=== PATIENT | male | born 1985 | race Asian ===

== ENCOUNTER 2017-07-20 07:53 | Emergency (ER) | payer OTHER ==
[2017-07-20 08:04] VITALS: BP 147/83
--- NOTE | 2017-07-20 08:24 | ED Physician Documentation ---
History of Present Illness - Stated complaint Stated Complaint: DIARRHEA - Chief complaint Chief Complaint: Abd Pain - Additonal information Additional information: hx from pt 31 healthy AD [place] male developed diarrhea after eating frozen shrimp no travel,. no sick contacts, no recent ab no fever no NV no blood in BM mild epigastric pain sx were severe over weekend but better now needs a note for work Review of Systems Constitutional: denies: Fever Cardiac: denies: Chest pain / pressure Respiratory: denies: Dyspnea GI: reports: Diarrhea. denies: Nausea, Vomiting, Bloody / black stool Immunocompromised: denies: Immunocompromised PD PAST MEDICAL HISTORY - Past Medical History Past Medical History: No - Present Medications Home Medications: Ambulatory Orders Medication Instructions Recorded Confirmed Loperamide [Imodium] 2 mg PO ONCE PRN #10 capsule 07/20/17 - Allergies Allergies/Adverse Reactions: Allergies Allergy/AdvReac Type Severity Reaction Status Date / Time No Known Drug Allergies Allergy Verified 07/20/17 08:01 - Social History Does the pt smoke?: No Smoking Status: Never smoker Does the pt drink ETOH?: No Does the pt have substance abuse?: No - Immunizations Immunizations are current?: Yes PD ED PE NORMAL - Vitals Vital signs reviewed: Yes - Cardiac Cardiac: RRR - Respiratory Respiratory: No respiratory distress - Abdomen Abdomen: Soft, Non tender - Derm Derm: Normal color - Neuro Neuro: Alert and oriented X 3 Results - Vitals Vitals: Vital Signs - 24 hr 07/20/17 07:56 Temperature 36.5 C Heart Rate 69 Respiratory 16 Rate Blood Pressure 147/83 H O2 Saturation 95 Oxygen O2 Source Room air PD MEDICAL DECISION MAKING - ED course ED course: diarrhea after eating shrimp self resolved Departure - Departure Disposition: 01 Home, Self Care Clinical Impression: Diarrhea Qualifiers: Diarrhea type: unspecified type Qualified Code(s): R19.7 - Diarrhea, unspecified Condition: Good Instructions: ED Diet Vomiting Diarrhea Follow-Up: [facility] Vivas [Provider Group] Prescriptions: Loperamide [Imodium] 2 mg PO ONCE PRN #10 capsule PRN Reason: Diarrhea Comments: Since your symptoms are better now I don't think you need stool tests or antibiotics Rest and drink plenty of fluids today I have prescribed some medication to help any further mild diarrhea But if you have severe diarrhea (more than 10 X per day, blood in the stools, fever, severe abdominal pain) you should come back to the ER for further work up Please get your blood pressure rechecked when you are feeling better - it was high today Forms: Activity restrictions
== END 2017-07-20 08:41 | disposition home or self-care (01) ==
LOC: ED 07:53
DX: R19.7 Diarrhea, unspecified (principal)
CPT/HCPCS: 99283

== ENCOUNTER 2017-11-11 08:49 | Emergency (ER) | payer OTHER ==
--- NOTE | 2017-11-11 09:31 | ED Physician Documentation ---
PD HPI BACK PAIN - Stated complaint Stated Complaint: BACK PX - Chief complaint Chief Complaint: Back Pain - History obtained from History obtained from: Patient - History of Present Illness Timing - onset: How many years ago (1) Timing - duration: Years (1) Timing - details: Gradual onset, Still present, Waxing and waning Pain level max: 7 Pain level now: 6 Location: Lower Quality: Pain, Spasm, Sharp Associated symptoms: No: Fever, Weakness, Numbness, Incontinent of urine, Unable to urinate, Hematuria, Incontinent of stool Improves with: Rest Worsened by: Movement, Lifting, Twisting, Palpation Contributing factors: Lifting Similar symptoms before: Has not had sx before Recently seen: Not recently seen - Additional information Additional information: 31-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 The patient states that his back hurts all the time and that if he works excessively carrying that it will hurt more than usual. He feels that there is a bone out of place. On his foot he also complains of pain in the left heel and this pain is worse in the morning when he gets up and as he is around on his feet the pain resolves and if he rests for any period of time the pain will come back until he works it again. The foot symptoms have been around for about 4-5 months. Review of Systems Constitutional: denies: Fever Eyes: denies: Decreased vision Ears: denies: Ear pain Nose: denies: Congestion Throat: denies: Sore throat Cardiac: denies: Chest pain / pressure, Palpitations Respiratory: denies: Dyspnea, Cough GI: denies: Abdominal Pain, Nausea, Vomiting : denies: Dysuria, Frequency Skin: denies: Rash Musculoskeletal: reports: Back pain, Extremity pain, Pain with weight bearing. denies: Neck pain, Extremity swelling Neurologic: denies: Generalized weakness, Focal weakness, Numbness PD PAST MEDICAL HISTORY - Past Medical History Past Medical History: No - Past Surgical History Past Surgical History: No - Allergies Allergies/Adverse Reactions: Allergies Allergy/AdvReac Type Severity Reaction Status Date / Time No Known Drug Allergies Allergy Verified 07/20/17 08:01 - Social History Does the pt smoke?: No Smoking Status: Never smoker Does the pt drink ETOH?: No Does the pt have substance abuse?: No - Immunizations Immunizations are current?: Yes - POLST Patient has POLST: No PD ED PE NORMAL - Vitals Vital signs reviewed: Yes (hypertensive) - General General: Alert and oriented X 3, No acute distress, Well developed/nourished - HEENT HEENT: Atraumatic, PERRL - Respiratory Respiratory: No respiratory distress - Back Back: No CVA TTP, No spinal TTP, Other (There is some tenderness to the upper L spine midline with a vertebral process skewed to the left. 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, No motor deficit, No sensory deficit, Normal speech Eye Opening: Spontaneous Motor: Obeys Commands Verbal: Oriented GCS Score: 15 - Psych Psych: Normal mood, Normal affect Results - Vitals Vitals: Vital Signs - 24 hr 11/11/17 08:59 Temperature 36.4 C L Heart Rate 67 Respiratory 14 Rate Blood Pressure 134/83 H O2 Saturation 95 Oxygen O2 Source Room air - Rads (name of study) foot Radiology: Prelim report reviewed (Impression no acute osseous abnormality.), EMP read indepedently, See rad report lumbar spine Radiology: Prelim report reviewed (Impression: No evidence of acute osseous abnormality.), EMP read indepedently, See rad report PD MEDICAL DECISION MAKING - ED course Complexity details: reviewed results, re-evaluated patient, considered differential, d/w patient ED course: 31-year-old male with chronic issue with his back and his foot is in the emergency department today as [place] His issues are chronic and may require further treatment. He does have what sounds like plantar fasciitis and does not have calcaneal spurs. He also has some chronic mid back pain. He is given a dose of decadron here in the ED. - Sepsis Event Vital Signs: Vital Signs - 24 hr 11/11/17 08:59 Temperature 36.4 C L Heart Rate 67 Respiratory 14 Rate Blood Pressure 134/83 H O2 Saturation 95 Oxygen O2 Source Room air Departure - Departure Disposition: 01 Home, Self Care Clinical Impression: Plantar fasciitis of left foot Lumbar strain Qualifiers: Encounter type: initial encounter Qualified Code(s): S39.012A - Strain of muscle, fascia and tendon of lower back, initial encounter Condition: Stable Instructions: ED Sprain Strain Lumbar, ED Plantar Fasciitis Follow-Up: [facility] Vivas [Provider Group] Forms: Activity restrictions
[2017-11-11] MEDS ORDERED: DEXAMETHASONE 10 MG/ML VIAL PO STA (09:48)
--- NOTE | 2017-11-11 10:45 | XRAY Report ---
Procedure Date: 11/11/2017 Accession Number: [id number] / [id number] Procedure: XR - Lumbar Spine 2 View CPT Code: FULL RESULT: EXAM: LUMBOSACRAL SPINE RADIOGRAPHY EXAM DATE: 11/11/2017 10:12 AM. CLINICAL HISTORY: Upper lumbar pain. COMPARISONS: None. TECHNIQUE: 2 views. FINDINGS: Alignment: No spondylolisthesis or significant scoliosis. Bones: Five [id number] lumbar vertebral bodies are present. Mild anterior wedging of T12 is age indeterminate but likely chronic. Disks: disk heights are maintained. Facets: No significant degenerative change. Sacroiliac Joints: Unremarkable. Soft Tissues: Unremarkable. IMPRESSION: No evidence of acute osseous abnormality. RADIA
--- NOTE | 2017-11-11 10:47 | XRAY Report ---
Procedure Date: 11/11/2017 Accession Number: [id number] / [id number] Procedure: XR - Foot 3 View LT CPT Code: FULL RESULT: EXAM: LEFT FOOT RADIOGRAPHY EXAM DATE: 11/11/2017 10:13 AM. CLINICAL HISTORY: Heel pain with ambulation for months. COMPARISON: None. TECHNIQUE: 3 views. FINDINGS: Bones: No acute fracture or focal osseous lesion. Minimal degenerative dorsal calcaneal spurring; no plantar spurring. Joints: No subluxation. Soft Tissues: Normal. No soft tissue swelling. IMPRESSION: No acute osseous abnormality. RADIA
[2017-11-11 13:13] VITALS: BP 131/88
== END 2017-11-11 11:50 | disposition home or self-care (01) ==
LOC: ED 08:49
DX: S39.012A Strain of muscle, fascia and tendon of lower back, initial encounter (principal)
CPT/HCPCS: 72100; 99283

== ENCOUNTER 2017-11-12 08:57 | Emergency (ER) | payer OTHER ==
[2017-11-12 09:08] VITALS: BP 125/72
--- NOTE | 2017-11-12 10:07 | CT Report ---
Reason: lower thoracic spine pain/mass Procedure Date: 11/12/2017 Accession Number: [id number] / [id number] Procedure: CT - Thoracic Spine W/O CPT Code: FULL RESULT: EXAM: CT THORACIC SPINE WITHOUT CONTRAST EXAM DATE: 11/12/2017 09:43 AM. CLINICAL HISTORY: Back pain COMPARISONS: None. TECHNIQUE: Thin-section axial images were acquired of the thoracic spine from C7 to L1 without contrast. Post-processing: Coronal and sagittal reformats. Other: None. IV Contrast: None. In accordance with CT protocol optimization, one or more of the following dose reduction techniques were utilized for this exam: automated exposure control, adjustment of mA and/or KV based on patient size, or use of iterative reconstructive technique. FINDINGS: Alignment: No scoliosis or spondylolisthesis. Bones: No fracture or bone lesion. Slight height loss of T12 appears chronic, possibly developmental. Disk Levels/Facets: C7-T1: Unremarkable. T1-T2: Unremarkable. T2-T3: Unremarkable. T3-T4: Unremarkable. T4-T5: Unremarkable. T5-T6: Unremarkable. T6-T7: Unremarkable. T7-T8: Unremarkable. T8-T9: Unremarkable. T9-T10: Unremarkable. T10-T11: Unremarkable. T11-T12: Unremarkable. T12-L1: Unremarkable. Musculature: Unremarkable. No soft tissue mass seen. IMPRESSION: Normal thoracic spine CT. RADIA
--- NOTE | 2017-11-12 10:35 | ED Physician Documentation ---
PD HPI BACK PAIN - Stated complaint Stated Complaint: BACK PX - Chief complaint Chief Complaint: Back Pain - History obtained from History obtained from: Patient - History of Present Illness Timing - onset: How many years ago (2) Timing - duration: Years (2) Timing - details: Gradual onset, Still present Location: Mid Quality: Pain, Spasm, Sharp, Similar to prior episodes Associated symptoms: No: Fever, Weakness, Numbness, Incontinent of urine, Unable to urinate, Hematuria, Incontinent of stool Improves with: Rest Worsened by: Movement, Palpation Contributing factors: No: Lifting, Twisting Similar symptoms before: No diagnosis Recently seen: Emergency Dept - Additional information Additional information: 31-year-old male who has had a spot in the middle of his back that is bothering him for years has had an increase in his symptoms recently and he is gone into see a [place] medic medicine practitioner who as requested he get x-ray examination of the area. He came in yesterday and lumbosacral spine film was done and this does not demonstrate adequately the area where he has his major symptom. He has his major symptom over T12 T11. He is come back in this morning for alternative films. Review of Systems Constitutional: denies: Fever Eyes: denies: Decreased vision Ears: denies: Ear pain Nose: denies: Congestion Throat: denies: Sore throat Respiratory: denies: Cough GI: denies: Vomiting : denies: Dysuria Musculoskeletal: reports: Back pain. denies: Extremity pain Neurologic: denies: Generalized weakness, Focal weakness, Numbness PD PAST MEDICAL HISTORY - Past Surgical History Past Surgical History: No - Present Medications Home Medications: Ambulatory Orders Medication Instructions Recorded Confirmed No Known Home Medications [No 11/12/17 11/12/17 Known Home Medications] - Allergies Allergies/Adverse Reactions: Allergies Allergy/AdvReac Type Severity Reaction Status Date / Time No Known Drug Allergies Allergy Verified 11/12/17 09:07 - Social History Does the pt smoke?: No Smoking Status: Never smoker Does the pt drink ETOH?: No Does the pt have substance abuse?: No - Immunizations Immunizations are current?: Yes - POLST Patient has POLST: No PD ED PE NORMAL - Vitals Vital signs reviewed: Yes (normal ) - General General: Alert and oriented X 3, No acute distress, Well developed/nourished - HEENT HEENT: Atraumatic, PERRL, EOMI - Neck Neck: Supple, no meningeal sign - Respiratory Respiratory: No respiratory distress - Back Back: No CVA TTP, Other (There is a prominent vertebral process in the mid back (if you work hard to feel it)) - Derm Derm: Normal color, Warm and dry, No rash - Extremities Extremities: No deformity, No edema Results - Vitals Vitals: Vital Signs - 24 hr 11/12/17 09:03 Temperature 36.8 C Heart Rate 69 Respiratory 16 Rate Blood Pressure 125/72 O2 Saturation 96 Oxygen O2 Source Room air PD MEDICAL DECISION MAKING - ED course Complexity details: reviewed old records, reviewed results, re-evaluated patient , considered differential, d/w patient ED course: 31-year-old male with chronic back pain has request for imaging procedures and these are provided in the form of a CT of the thoracic spine. A copy of the disc is administered to the patient. - Sepsis Event Vital Signs: Vital Signs - 24 hr 11/12/17 09:03 Temperature 36.8 C Heart Rate 69 Respiratory 16 Rate Blood Pressure 125/72 O2 Saturation 96 Oxygen O2 Source Room air Departure - Departure Disposition: 01 Home, Self Care Clinical Impression: Back pain Qualifiers: Back pain location: thoracic back pain Chronicity: chronic Back pain laterality : midline Qualified Code(s): M54.6 - Pain in thoracic spine; G89.29 - Other chronic pain; G89.29 - Other chronic pain Instructions: ED Neck Back Pain General Follow-Up: [facility] Vivas [Provider Group]
== END 2017-11-12 11:00 | disposition home or self-care (01) ==
LOC: ED 08:57
DX: G89.29 Other chronic pain (principal); M54.6 Pain in thoracic spine
CPT/HCPCS: 72128; 99282; 99283

== ENCOUNTER 2018-09-20 12:14 | Outpatient (CLI) | payer OTHER ==
--- NOTE | 2018-09-21 10:51 | MRI Report ---
Reason: PAIN IN LEFT FOOT Procedure Date: 09/20/2018 Accession Number: [id number] / [id number] Procedure: MRI - Foot LT W/O CPT Code: FULL RESULT: EXAM: LEFT MIDFOOT MRI WITHOUT CONTRAST EXAM DATE: 09/20/2018 01:19 PM. CLINICAL HISTORY: Left heel pain. Recent MRI ankle. COMPARISON: FOOT 3 VIEW LT 11/11/2017 9:56 AM. TECHNIQUE: Multiplanar, multisequence T1-weighted and fluid-sensitive sequences of the midfoot without contrast. Other: None. FINDINGS: Bones: No fractures or subluxations. No marrow edema. No bone lesions. Articular Cartilage: Unremarkable. Ligaments: The visualized intertarsal, intermetatarsal, and tarsometatarsal ligaments are intact. This includes the Lisfranc ligament. The visualized collateral ligaments are intact. Tendons: The flexor and extensor tendons are unremarkable. Musculature: No edema or fatty atrophy. Other: No effusions. The visualized portion of the tarsal tunnel is unremarkable. No intermetatarsal bursitis. The subcutaneous tissues are unremarkable. IMPRESSION: No MRI abnormalities in the midfoot. RADIA
== END 2018-09-20 12:15 | disposition home or self-care (01) ==
LOC: DI 12:14
PROVIDERS: ATTEND Orthopaedic Surgery
DX: M79.672 Pain in left foot (principal)

== ENCOUNTER 2018-11-29 08:16 | Emergency (ER) | payer OTHER ==
[2018-11-29 08:23] VITALS: BP 125/75
--- NOTE | 2018-11-29 09:12 | ED Physician Documentation ---
PD HPI HEENT - Stated complaint Stated Complaint: EAR PX - Chief complaint Chief Complaint: Heent - History obtained from History obtained from: Patient - History of Present Illness Timing - onset: How many days ago (3) Timing - duration: Days (3) Timing - details: Gradual onset, Still present Location: Left ear Improves: Nothing Worsens: Position, Other (touching) Associated symptoms: Other (drainage from the ear). No: Fever, Congestion, Rhinorrhea, Cough Similar symptoms before: Has not had sx before Recently seen: Not recently seen - Additional information Additional information: 33-year-old male with pain to the left ear over the past 3 days has developed some drainage as well. He denies exposure to water in the form of swimming. He denies any cough or congestion or drainage down the back of his throat. Review of Systems Constitutional: denies: Fever Eyes: denies: Decreased vision Ears: reports: Loss of hearing, Ear pain, Drainage/discharge Nose: denies: Rhinorrhea / runny nose, Congestion Throat: denies: Sore throat Respiratory: denies: Cough GI: denies: Vomiting PD PAST MEDICAL HISTORY - Past Surgical History Past Surgical History: No - Present Medications Home Medications: Ambulatory Orders Medication Instructions Recorded Confirmed Azithromycin [Zithromax] 250 mg PO DAILY #6 tablet 11/29/18 Neomycin/Polymyx/Hc Otic Drops 4 drops LEFTEAR QID #1 bottle 11/29/18 [Cortisporin Ear Susp] - Allergies Allergies/Adverse Reactions: Allergies Allergy/AdvReac Type Severity Reaction Status Date / Time No Known Drug Allergies Allergy Verified 11/29/18 08:23 - Social History Does the pt smoke?: No Smoking Status: Never smoker Does the pt drink ETOH?: No Does the pt have substance abuse?: No - Immunizations Immunizations are current?: Yes - POLST Patient has POLST: No PD ED PE NORMAL - Vitals Vital signs reviewed: Yes (normal ) - General General: Alert and oriented X 3, No acute distress, Well developed/nourished - HEENT HEENT: Atraumatic, PERRL, EOMI, Other (There is erythema to the canal on the left with drainage. The TM is inflamed with indistinct landmarks. There is pain to pull on the tragus or push on the pinna. There is inflamation to the middle ear only on the right side with inflamation of the TM and distortion of the landmarks. ) - Neck Neck: Supple, no meningeal sign, No bony TTP - Cardiac Cardiac: RRR, No murmur - Respiratory Respiratory: No respiratory distress, Clear bilaterally - Abdomen Abdomen: Soft, Non tender - Back Back: No CVA TTP, No spinal TTP - Derm Derm: Normal color, Warm and dry, No rash - Extremities Extremities: No deformity, No edema, Other (The patient is wearing a therpeutic boot for the plantar faccitis on the left. 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 He is treated with both drops and oral antibiotic. Departure - Departure Disposition: 01 Home, Self Care Clinical Impression: Otitis externa Qualifiers: Otitis externa type: unspecified type Chronicity: acute Laterality: left Qualified Code(s): H60.502 - Unspecified acute noninfective otitis externa, left ear Otitis media Qualifiers: Otitis media type: suppurative Chronicity: acute Laterality: bilateral Recurrence: non-recurrent Spontaneous tympanic membrane rupture: without spontaneous rupture Qualified Code(s): H66.003 - Acute suppurative otitis media without spontaneous rupture of ear drum, bilateral Condition: Stable Instructions: ED Otitis Media Acute Adult, ED Otitis Externa Follow-Up: JR DALTON [Primary Care Provider] - Prescriptions: Azithromycin [Zithromax] 250 mg PO DAILY #6 tablet Neomycin/Polymyx/Hc Otic Drops [Cortisporin Ear Susp] 4 drops LEFTEAR QID #1 bottle
== END 2018-11-29 09:20 | disposition home or self-care (01) ==
LOC: ED 08:16
DX: H66.003 Acute suppurative otitis media without spontaneous rupture of ear drum, bilateral (principal); H60.502 Unspecified acute noninfective otitis externa, left ear
CPT/HCPCS: 99282; 99283

== ENCOUNTER 2019-01-01 09:58 | Emergency (ER) | payer OTHER ==
[2019-01-01] MEDS ORDERED: IBUPROFEN 600 MG TABLET PO STA (11:25)
--- NOTE | 2019-01-01 11:29 | ED Physician Documentation ---
PD HPI HEENT - Stated complaint Stated Complaint: L EAR PX - Chief complaint Chief Complaint: Heent - History obtained from History obtained from: Patient - History of Present Illness Timing - onset: How many weeks ago (4) Timing - duration: Weeks (4), Other (symptoms improved after treatment here with ear drops but then worsened today) Timing - details: Abrupt onset Severity Comments: moderate Location: Left ear Improves: Nothing (he took nothing for his pain) Worsens: Position, Other (pulling on the ear). No: Swalllowing, Noise Associated symptoms: No: Fever, Congestion, Rhinorrhea, Trismus, Unable to swallow, Swollen nodes, Facial swelling, Headache, Cough Similar symptoms before: Diagnosis (treated for otitis media and otitis externa a month ago) Recently seen: Emergency Dept - Treatment prior to arrival Treatment prior to arrival: no treatment today - Additional information Additional information: States symptoms were improving but then got worse again today Review of Systems Ten Systems: 10 systems reviewed and negative Constitutional: denies: Fever, Chills Eyes: reports: Reviewed and negative Ears: reports: Ear pain, Drainage/discharge. denies: Loss of hearing Nose: reports: Reviewed and negative. denies: Rhinorrhea / runny nose, Congestion, Foreign Body Throat: reports: Reviewed and negative Cardiac: reports: Reviewed and negative Respiratory: reports: Reviewed and negative Skin: reports: Reviewed and negative Musculoskeletal: reports: Reviewed and negative Immunocompromised: reports: Reviewed and negative PD PAST MEDICAL HISTORY - Past Medical History Past Medical History: No - Past Surgical History Past Surgical History: No - Present Medications Home Medications: Ambulatory Orders Medication Instructions Recorded Confirmed Azithromycin [Zithromax] 250 mg PO DAILY #6 tablet 11/29/18 Neomycin/Polymyx/Hc Otic Drops 4 drops LEFTEAR QID #1 bottle 11/29/18 [Cortisporin Ear Susp] Ofloxacin 10 drops LEFTEAR DAILY 7 Days #1 01/01/19 bottle dexAMETHasone [Decadron] 4 drops LEFTEAR TID 7 Days #1 01/01/19 bottle - Allergies Allergies/Adverse Reactions: Allergies Allergy/AdvReac Type Severity Reaction Status Date / Time No Known Drug Allergies Allergy Verified 01/01/19 10:08 - Social History Does the pt smoke?: No Smoking Status: Never smoker Does the pt drink ETOH?: No Does the pt have substance abuse?: No - Immunizations Immunizations are current?: Yes - POLST Patient has POLST: No PD ED PE NORMAL - Vitals Vital signs reviewed: Yes - General General: Alert and oriented X 3, No acute distress, Well developed/nourished - HEENT HEENT: Atraumatic, PERRL, EOMI, Moist mucous membranes, Pharynx benign - Neck Neck: Supple, no meningeal sign, No JVD - Cardiac Cardiac: RRR - Respiratory Respiratory: No respiratory distress - Abdomen Abdomen: Non distended - Male Male : Deferred - Rectal Rectal: Deferred - Derm Derm: Normal color, Warm and dry, No rash - Neuro Neuro: Alert and oriented X 3 Eye Opening: Spontaneous Motor: Obeys Commands Verbal: Oriented GCS Score: 15 - Psych Psych: Normal mood, Normal affect PD ED PE EXPANDED - HEENT HEENT: Other (no mastoid tenderness or redness, L TM not visualized, obstructed by otorrhea, pain with pulling on L ear). No: R TM red, R TM dull, R TM bulging, R TM retracted, R TM loss of landmarks Results - Vitals Vitals: Vital Signs - 24 hr 01/01/19 01/01/19 10:06 11:41 Temperature 36.9 C Heart Rate 61 63 Respiratory 15 16 Rate Blood Pressure 124/84 H 129/90 H O2 Saturation 97 100 Oxygen O2 Source Room air PD MEDICAL DECISION MAKING - ED course Complexity details: reviewed old records, reviewed results, considered differential, d/w patient ED course: ddx - otitis externa, otitis media, otalgia, mastoiditis 33 y/o M with Ear pain and exam findings suggestive of recurrent otitis externa. Will restart antibiotic and topical steroid for symptoms. Pt can take otc analgesics prn for pain. he is stable for discharge. Departure - Departure Disposition: 01 Home, Self Care Clinical Impression: Otitis externa Qualifiers: Otitis externa type: unspecified type Chronicity: unspecified Laterality: left Qualified Code(s): H60.92 - Unspecified otitis externa, left ear Condition: Stable Instructions: ED Otitis Externa Follow-Up: JR DALTON [Primary Care Provider] - Within 1 week (to recheck your symptoms ) Prescriptions: dexAMETHasone [Decadron] 4 drops LEFTEAR TID 7 Days #1 bottle Ofloxacin 10 drops LEFTEAR DAILY 7 Days #1 bottle Comments: You appear to have a recurrent otitis externa or outer ear infection. Initiate the prescribed ear drops which are antibiotics and make an appointment with your PCP to reassess this week. Return to the ED if fever or swelling of the ear or pain in back of the ear develop. Take tylenol and ibuprofen over the counter for pain. Discharge Date/Time: 01/01/19 11:43
[2019-01-01 11:42] VITALS: BP 129/90
== END 2019-01-01 11:43 | disposition home or self-care (01) ==
LOC: ED 09:58
DX: H60.92 Unspecified otitis externa, left ear (principal)
CPT/HCPCS: 99282; 99284; A9270